=== PATIENT | male | born 1985 | race American Indian/Alaskan Native ===

== ENCOUNTER 2018-01-15 11:36 | Day surgery (SDC) | payer BC ==
[~2018-01-15 11:36] MED LIST: MARCAINE 0.5% INFILTRATI ONE
[2018-01-15 13:21] LABS: Hematocrit 49.4 % (35.5-45.6); Hemoglobin 16.8 gm/dl (11.8-15.2); Mean Corpuscular HGB Conc 34 % (32-34); Mean Corpuscular Hemoglobin 32 pg (28-32); Mean Corpuscular Volume 93 fl (84-94); Platelet Count 189 K/mm3 (140-440); Red Blood Count 5.32 M/mm3 (3.65-5.03); Red Cell Distribution Width 12.6 % (13.2-15.2)
[2018-01-15] MEDS ORDERED: XYLOCAINE MPF 2% ONE (13:22)
[2018-01-15] MEDS ORDERED: ZEMURON IV ONE (13:22)
[2018-01-15] MEDS ORDERED: SUBLIMAZE ONE (13:22)
[2018-01-15] MEDS ORDERED: DIPRIVAN 10 MG/ML IV ONE ×2 (13:23→15:14)
[2018-01-15 13:35] LABS: Alanine Aminotransferase 18 units/L (7-56); Albumin 4.3 g/dL (3.9-5); BUN/Creatinine Ratio 15; Blood Urea Nitrogen 12 mg/dL (9-20); Calcium 8.8 mg/dL (8.4-10.2); Hemolysis Index 21
[2018-01-15] MEDS ORDERED: LACTATED RINGERS 1,000 ML ONE (13:35)
[2018-01-15] MEDS ORDERED: PEPCID IV ONE (13:36)
--- NOTE | 2018-01-15 13:40 | Anesthesia Day of Surgery ---
Anesthesia Day of Surgery - Day of Surgery Patient Examined: Yes Patient H&P Reviewed: Yes Patient is NPO: Yes
--- NOTE | 2018-01-15 13:40 | Anesthesia Consultation ---
Anesthesia Consult and Med Hx Date of service: 01/15/18 - Airway Anesthetic Teeth Evaluation: Good ROM Head & Neck: Adequate Mental/Hyoid Distance: Adequate Mallampati Class: Class II Intubation Access Assessment: Probably Good - Pulmonary Exam CTA: Yes - Cardiac Exam Cardiac Exam: RRR - Pre-Operative Health Status ASA Pre-Surgery Classification: ASA2 Proposed Anesthetic Plan: General - Other Systems Hx Substance Use: Yes (MARIJUANA)
[2018-01-15] MEDS ORDERED: ANCEF/STERILE WATER 2 GM/20 ML IV NR (14:00)
[2018-01-15] MEDS ORDERED: MARCAINE 0.5% 30 ML INFILTRATI ONE (14:48)
[2018-01-15] MEDS ORDERED: ZOFRAN ONE (14:59)
[2018-01-15] MEDS ORDERED: MARCAINE 0.5% INFILTRATI ONE (15:04)
[2018-01-15] MEDS ORDERED: QUELICIN ONE (15:10)
[2018-01-15] MEDS ORDERED: NEOSTIGMINE ONE (15:10)
[2018-01-15] MEDS ORDERED: ROBINUL ONE (15:10)
[2018-01-15] MEDS ORDERED: DILAUDID ONE (15:34)
--- NOTE | 2018-01-15 15:42 | Operative Report ---
PREOPERATIVE DIAGNOSIS: Left inguinal hernia. POSTOPERATIVE DIAGNOSIS: Left inguinal hernia with some fatty tissue within the hernial sac. SURGERY: Laparoscopic repair preperitoneal of a left inguinal hernia with application of mesh graft. ANESTHESIA: General. BLOOD LOSS: Minimal. FINDINGS: The patient had about a 1.5-2 cm hernial sac with the neck stuck at the level of the external inguinal ring. I was able to dissect this completely and the pulled it within the abdominal cavity. I did apply a medium sized synthetic graft to the area, tacking it to the conjoined tendon medially and to the Edison's ligament inferiorly and posteriorly. BLOOD LOSS: Minimal. URINE OUTPUT: During the operation was 500 mL. DESCRIPTION OF PROCEDURE: With the patient in supine position, prepped and draped in the usual fashion. I made a small incision in the infraumbilical area deep subcutaneous tissue all the way down to the fascia, which was incised then I was able to go into the anterior retroperitoneal space where I was able to see both rectus muscles in the midline and both internal inguinal rings. I dissected the portion of the omentum to the ring within the abdominal cavity and I was able to reach Poupart's ligament and conjoined tendon on the lateral side. After having good exposure, I was able to introduce a medium sized Marlex mesh graft, tacking it to Edison's ligament inferiorly and medially and then I went around the whole graft going superior to the internal inguinal ring, tacking it posteriorly and superiorly toward the lateral aspect of the abdominal cavity. This was done all retroperitoneal. After that maneuvering, we were well satisfied had good hemostasis. Then, I was able to remove the instruments leaving the patch as is with the tacks on it and deflating the preperitoneal space. The closure was performed using for that purpose #0 Vicryl [id number] x 2 for the fascia toward the periumbilical area and 4-0 for the skin. A bandage was applied. The patient was then transferred to the recovery in good condition. We are going to keep a scrotal support on him and I talked to his that we need to keep him until he is able to urinate on his own. In the meantime, no pulling, no pushing, no driving, no going back to work. I will see him sometimes late next week. We are going to give him Vicodin for pain. JOB# [id number] SHARONA/DELMI
[2018-01-15] MEDS ORDERED: PERCOCET 5/325 PO PRN (16:09)
[2018-01-15] MEDS ORDERED: ZOFRAN IV PRN (16:09)
[2018-01-15] MEDS: DILAUDID IV PRN ×2 (16:10→17:38)
--- NOTE | 2018-01-15 16:11 | Post Anesthesia Evaluation ---
- Post Anesthesia Evaluation Patient Participated: Yes Airway Patent: Yes Stable Respiratory Function: Yes Nausea/Vomiting: No Temp > 96.8F: Yes Pain Manageable: Yes Adequeate Hydration: Yes Anesthesia Complications: No
[2018-01-15 19:13] VITALS: BP 113/70
--- NOTE | 2018-01-16 03:22 | Discharge Summary ---
DISCHARGE SUMMARY SHORT NOTE FINAL DIAGNOSIS: Left inguinal hernia. HOSPITAL COURSE: This man was seen in my office about a month ago because of pain in the left inguinal area. Apparently, he was found to have a hernia on that side, so he was seen in the hospital today for repair. This was done with the scope with application of mesh graft. Postop, he was wheeled to the recovery room to have him stick around until he has a spontaneous urine and I talked to his on the phone to see me in about a week in my office. No pushing, no pulling, no driving, and just recuperation at home. He was given prescription for Vicodin and Milk of Magnesia. JOB# [id number] SHARONA/DELMI
== END 2018-01-15 11:37 | disposition home or self-care (01) ==
LOC: OR 11:36 → EDSTATUS 13:30
PROVIDERS: ATTEND Surgery
DX: K40.90 Unilateral inguinal hernia, without obstruction or gangrene, not specified as recurrent (principal); F17.200 Nicotine dependence, unspecified, uncomplicated
CPT/HCPCS: 36415; 49650; 80053; 85027; C1726; C1781; J0330; J0690; J1170; J2405; J2704; J2710; J3010; J7120